=== PATIENT | male | born 1965 | race Hispanic/Latino ===

== ENCOUNTER 2018-11-17 07:35 | Outpatient (CLI) | payer BC | END 2018-11-17 07:36 | disposition home or self-care (01) | LOC: C.PAT 07:35 | DX: Z01.818 Encounter for other preprocedural examination (principal); K42.9 Umbilical hernia without obstruction or gangrene; M62.08 Separation of muscle (nontraumatic), other site ==

== ENCOUNTER 2018-11-30 06:03 | Day surgery (SDC) | payer BC ==
[2018-11-17 07:49] VITALS: BMI 35.7
[2018-11-30] MEDS ORDERED: ceFAZolin 1 gm in NS 1 GM/100 ML BAG IVPB ONE (07:58)
[2018-11-30] MEDS ORDERED: Midazolam 2 MG/2 ML VIAL ONE (08:30)
[2018-11-30] MEDS ORDERED: Propofol 10 mg/ml Inj (20 ML) ONE (08:30)
[2018-11-30] MEDS ORDERED: Rocuronium 10 mg/ml (5 ml) ONE ×2 (08:53→09:50)
[2018-11-30] MEDS: Lidocaine/Epinephrine 1% 1:100000 10 ML IJ ONE ×2 (08:54→09:34)
[2018-11-30] MEDS: Bupivacaine 0.25% 20 ML INJ IJ ONE ×2 (08:54→09:35)
[2018-11-30] MEDS ORDERED: Dexamethasone 4 mg/1 ml ONE (09:13)
[2018-11-30] MEDS ORDERED: Phenylephrine 10 mg/ml Inj ONE (09:19)
[2018-11-30] MEDS: Bupivacaine Liposomal Inj 20 ml INFIL ONE ×2 (09:35→10:57)
[2018-11-30] MEDS: Sodium Chloride 0.9% Inj (20mL) IV ONE ×2 (09:37→10:57)
[2018-11-30] MEDS ORDERED: ePHEDrine 50 mg/ml Inj ONE (10:44)
[2018-11-30] MEDS ORDERED: Neostigmine 1:1000 (1 mg/ml) Inj ONE (11:10)
--- NOTE | 2018-11-30 11:25 | PCM.SURG1 ---
Surgeon's Initial Post Op Note - Surgeon's Notes Surgeon: Partha Pierce MD Clinical Application Manager: Pierce, PGY3. Pascale Sagastume, Surgical nurse Pre-Operative Diagnosis: Umbilical hernia, Diastasis recti Operative Findings: Umbilical hernia, Diastasis recti Post-Operative Diagnosis: Umbilical hernia, Diastasis recti Operation Performed: Repair of Umbilical hernia with mesh, Repair of diastasis recti Specimen/Specimens Removed: none Estimated Blood Loss: EBL {In ML}: 10 Date of Surgery/Procedure: 11/30/18 Time of Surgery/Procedure: 09:00
[2018-11-30] MEDS ORDERED: HYDROmorphone 0.5 mg/0.5 ml ISec IVP PRN (11:26)
--- NOTE | 2018-11-30 11:33 | PCM.OP ---
Operative Report - Operative Report Date of Surgery/Procedure: 11/30/18 Time of Surgery/Procedure: 08:30 Surgeon: Partha Pierce MD Shuttle Operator: Christiano Rey DO (PGY 3 resident); YA Archibald Anesthesia/Sedation: See main Pre-Operative Diagnosis: See main Post-Operative Diagnosis: See main Indication for Surgery: See main Operative Findings: See main Procedure/Operation Description: Anesthesia: General endotracheal; 1% lidocaine + 0.25% Marcaine mix local anesthesia PRE-OPERATIVE DIAGNOSIS: Diastasis Recti, Umbilical hernia, Obesity, BMI 35 POST-OPERATIVE DIAGNOSIS: Diastasis Recti, Umbilical hernia, Obesity, BMI 35 INDICATIONS FOR PROCEDURE: 53 year old male who presented to my office with an symptomatic umbilical hernia and worsening diastasis causing pain and limiting activity. Further details of HPI in clinical chart. I have reviewed the risks and benefits of laparoscopic/robotic umbilical hernia repairs and plication of rectus diastasis in detail as documented in the clinic chart. Specifically, we have noted the risks of recurrence, mesh infection, bowel injury. He understands that he is also at risk for perioperative morbidity and recurrence given his morbid obesity. However he is symptomatic and it is limiting his activity and overall quality of life. The patient consented to the procedure following these discussions and prior to the operation. PROCEDURE PERFORMED 1) Laparoscopic, Robotic Assisted Umbilical Hernia Repair with mesh (Transabdominal preperitoneal, ABIMBOLA procedure, Progrip mesh), plication of rectus diastasis DESCRIPTION OF PROCEDURE: The patient was given a preoperative dose of Ancef 2g 20 minutes before the incision. The patient had voided immediately prior to being brought to operating room and no vernon catheter was used. He was taken to the operating room and placed supine on the operating room table with both arms on padded armboard placed at patients side in neutral position. He was doubly strapped with safety belt on thighs and tape across [place]. The bed was then flexed at the hip to allow increased distance between costal margin and ASIS. Following successful endotracheal intubation, abdominal hair removed with shaver done and upper body warming blanket placed to maintain body temperature. Sequential compression stockings placed for DVT prophylaxis. A time out was performed prior to incision. The abdomen was prepped and draped in sterile fashion. Abdominal entry was gained using an 8mm optically viewing trocar with A 5mm 0-degree laparoscope placed in pal[place] point in the left upper quadrant. All layers of the abdominal wall were seen and peritoneal entry directly visualized. The abdomen was then insufflated with C02 pneumoperitoneum to 15mmhg. 5mm 0-degree laparoscope was then inserted and the abdomen was generally inspected. There were no signs of injury from initial entry and there was not found to be any additional signs of pathology. Large bulk of omentum noted to be herniating into umbilical defect, without any bowel involvement. Two additional 8mm robot working ports were then placed under direct vision following injection of local anesthesia, 1 in the left lower abdomen and the other in lateral left mid-abdomen at the level of the umbilicus. Once these were inserted, the patient was placed in slight Trendelenburg. A face protecting foam was placed over the patient's face and the robot patient cart was docked to the patient. A 30-degree robotic camera was inserted in the left lateral mid-abdominal port. Robotic instruments were then inserted under direct visualization., a fenestrated bipoar grasper was placed in the left lower port, and monopolar curved scissors placed in left upper port. Hernia contents were reduced using a combination of blunt and electrocautery dissection. Next the hernia defect was measured and found to be 2cm wide. We then proceeded with creation of pre-peritoneal flap. The peritoneum incised 5cm lateral to lateral most edge of hernia defect and carries cephalad and caudad for approximately 12cm total, centered around hernia defect. Using a combination of blunt and electrocautery dissection we proceeded toward the hernia defect and created a flap approximately 5cm distal to contralateral edge of defect. The hernia was then dissected free from the pseudo sac and a 5cm peritoneal defect were closed with 2-0 vicryl suture in running fashion. Once this was completed, pneumoperitoneum was reduced to 10mmhg, the fascial d efect was primarily closed using a running 0-vlock suture, incorporating bites of the pseudo sac to re-create the umbilicus with care taken not to include skin. The linea alba was re-approximated without tension. Next a Parietex Progrip, self-adhering, mesh [id number] rectangular mesh introduced into the preperitoneal space. It was placed over the anterior abdominal wall, centered over the closed hernia defect, allowing for appropriate 5cm overlap of hernia defect. No fixation sutures were needed. The peritoneal flap was then closed using running 2-0 v-lock barbed suture in Center fashion. The robot was then undocked from the patient and I scrubbed back in at bedside. Using the robotic camera, the abdomen was inspected and hemostatic. 30mL of local anesthesia injected under direct vision in pre- peritoneal space adjacent to port sites. The ports were then removed under direct vision and the abdomen desufflated. The skin incisions were closed using interrupted 4-0 Monocryl sutures then Dermabond applied to skin. The patient was extubated in the OR without incident and transferred to recovery in stable condition. Abdominal binder applied to patients abdomen. I was present throughout the entirety of the case. Sponge, needle and instrument counts were correct.
[2018-11-30 13:08] VITALS: BP 130/60; PULSE 69; RESP 18; TEMP 98; O2SAT 100
== END 2018-11-30 13:11 | disposition home or self-care (01) ==
LOC: C.SDS 06:03
PROVIDERS: ATTEND Surgery
DX: K42.9 Umbilical hernia without obstruction or gangrene (principal); M62.08 Separation of muscle (nontraumatic), other site; E66.01 Morbid (severe) obesity due to excess calories; Z68.35 Body mass index [BMI] 35.0-35.9, adult
CPT/HCPCS: 15830; 49652; J0690; J1100; J1170; J2001; J2250; J2370; J2405; J2704; J2710; J3010